=== PATIENT | female | born 1995 | race Caucasian/White ===

== ENCOUNTER 2017-08-13 23:23 | Emergency (ER) | payer OTHER ==
[2017-08-13 23:29] VITALS: TEMP 98.8
--- NOTE | 2017-08-13 23:39 | EDPHY ---
H & P Stated Complaint: drug interaction between celexa and abx- racing heart Time Seen by Provider: 08/13/17 23:38 HPI/ROS: HPI: This is a 21-year-old female who presents Chief Complaint: drug interaction between celexa and abx- racing heart Location: heart Quality: Racing Duration: Prior to arrival Signs and Symptoms: No fever, + cough, no chills, + fatigue, + decreased appetite, no chest pain, no shortness of breath, no headache, no neck stiffness Timing: Sudden Severity: Moderate to severe Context: Patient reports that she was diagnosed with mono in May and then developed a cough and body aches several days ago. She was diagnosed with bronchitis and started on a Z-Devon, albuterol nebulizer 3 times a day and prednisone. Today while she was getting ready for bed, she started to feel her heart race and increased breathing pattern that she describes as shallow. She is concerned that she is having interaction between her Celexa and Zithromax per the pharmacist warning. History of asthma. Modifying Factors: None Comment: ROS: see HPI Constitutional: No fever, no chills, no weight loss Eyes: No blurred vision Respiratory: No shortness of breath, no cough Cardiovascular: No chest pain Gastrointestinal: No nausea, no vomiting, no diarrhea Genitourinary: No dysuria Extremities: No myalgias Neurologic: No weakness, no numbness Skin: No rashes Hematologic: No bruising, no bleeding MEDICAL/SURGICAL/SOCIAL HISTORY: Medical history: Asthma Surgical history: Nose surgery Social history: College student. CONSTITUTIONAL: Teenage white female who is moderately anxious awake and alert , no obvious distress HEENT: Atraumatic and normocephalic, PERRL, EOMI. Tympanic membranes clear. Oropharynx clear, no exudate and moist pink mucosa. Airway patent. No lymphadenopathy. No meningismus. Cardiovascular: Normal S1/S2, regular rate, regular rhythm, without murmur rub or gallop. PULMONARY/CHEST: Symmetrical and nontender. Clear to auscultation bilaterally. Good air movement. No accessory muscle usage. ABDOMEN: Soft, nondistended, nontender, no rebound, no guarding, no peritoneal signs, no masses or organomegaly. No CVAT. EXTREMITIES: 2/2 pulses, strength 5/5, no deformities, no clubbing, no cyanosis or edema. NEUROLOGICAL: no focal neuro deficits. GCS 15. SKIN: Warm and dry, no erythema. no rash. Good capillary refill. Source: Patient Exam Limitations: No limitations - Personal History LMP (Females 10-55): 1-7 Days Ago Current Tetanus/Diphtheria Vaccine: Yes Current Tetanus Diphtheria and Acellular Pertussis (TDAP): Yes - Medical/Surgical History Hx Asthma: Yes Hx Chronic Respiratory Disease: No Hx Diabetes: No Hx Cardiac Disease: No Hx Renal Disease: No Hx Cirrhosis: No Hx Alcoholism: No Hx HIV/AIDS: No Hx Splenectomy or Spleen Trauma: No Other PMH: surgery on nose - Social History Smoking Status: Never smoked Constitutional: Initial Vital Signs Temperature (C) 37.1 C 08/13/17 23:26 Heart Rate 67 08/13/17 23:26 Respiratory Rate 16 08/13/17 23:26 Blood Pressure 122/62 H 08/13/17 23:26 O2 Sat (%) 95 08/13/17 23:26 O2 Delivery Mode Room Air Allergies/Adverse Reactions: No Known Allergies Allergy (Unverified 08/13/17 23:29) Home Medications: Medication Instructions Recorded Adderall 10 mg Tablet 08/13/17 Albuterol 08/13/17 Celexa 08/13/17 Claritin 08/13/17 Tanika 3 mg-0.02 mg Tablet 08/13/17 Singulair 08/13/17 Amoxicillin/Clavulanate Pot 875 mg PO BID #10 tab 08/14/17 [Augmentin 875 MG TAB (*)] Benzonatate [Tessalon Pearles (RX)] 100 mg PO Q8 PRN #12 cap 08/14/17 Medical Decision Making - Diagnostics Imaging Results: Imaging Impressions Chest X-Ray 08/13/17 23:53 Impression: Normal chest x-ray. Procedures: 12 lead EKG: Indication: Heart racing Rhythm: Normal sinus rhythm, rate of 61 beats per minute Burr: Normal Intervals: Normal QRS: Normal ST segments: Normal T waves: Flipped in V1 V2 INTERPRETATION: Normal EKG The 12 lead EKG was interpreted by myself and with attending. ED Course/Re-evaluation: EKG, labs, chest x-ray and IV fluids ordered Vital signs stable upon arrival Chest x-ray my read shows no signs of pneumonia/pleural effusion/pneumothorax Labs grossly unremarkable including normal D-dimer Advised patient to discontinue Zithromax and I will start Augmentin, continue prednisone and only use albuterol nebulizers as needed Differential Diagnosis: Shortness of breath including but not limited to pulmonary infectious process, pulmonary embolus, medication side effect, dehydration, pneumonia. - Data Points Laboratory Results: Laboratory Results 08/13/17 23:50 08/13/17 23:50 08/13/17 08/13/17 08/13/17 23:50 23:50 23:50 WBC RBC Hgb Hct MCV MCH MCHC RDW Plt Count MPV Neut % (Auto) Lymph % (Auto) [place] % (Auto) Eos % (Auto) Baso % (Auto) Nucleat RBC Rel Count Absolute Neuts (auto) Absolute Lymphs (auto) Absolute Monos (auto) Absolute Eos (auto) Absolute Basos (auto) Absolute Nucleated RBC Immature Gran % Immature Gran # D-Dimer < 0.27 ug/mLFEU ug/mLFEU (0.00-0.50) Sodium 142 mEq/L mEq/L (134-144) Potassium 3.9 mEq/L mEq/L (3.5-5.2) Chloride 106 mEq/L mEq/L (97-110) Carbon Dioxide 22 mEq/l mEq/l (22-31) Anion Gap 14 mEq/L mEq/L (8-16) BUN 12 mg/dL mg/dL (7-23) Creatinine 0.6 mg/dL mg/dL (0.6-1.0) Estimated GFR > 60 Glucose 115 mg/dL H mg/dL (70-100) Calcium 9.2 mg/dL mg/dL (8.5-10.4) Beta HCG, Qual NEGATIVE 08/13/17 23:50 WBC 7.74 10^3/uL 10^3/uL (3.80-9.50) RBC 3.97 10^6/uL L 10^6/uL (4.18-5.33) Hgb 13.3 g/dL g/dL (12.6-16.3) Hct 37.3 % L % (38.0-47.0) MCV 94.0 fL fL (81.5-99.8) MCH 33.5 pg pg (27.9-34.1) MCHC 35.7 g/dL g/dL (32.4-36.7) RDW 12.7 % % (11.5-15.2) Plt Count 176 10^3/uL 10^3/uL (150-400) MPV 12.3 fL H fL (8.7-11.7) Neut % (Auto) 68.2 % % (39.3-74.2) Lymph % (Auto) 23.0 % % (15.0-45.0) [place] % (Auto) 7.9 % % (4.5-13.0) Eos % (Auto) 0.0 % L % (0.6-7.6) Baso % (Auto) 0.5 % % (0.3-1.7) Nucleat RBC Rel Count 0.0 % % (0.0-0.2) Absolute Neuts (auto) 5.28 10^3/uL 10^3/uL (1.70-6.50) Absolute Lymphs (auto) 1.78 10^3/uL 10^3/uL (1.00-3.00) Absolute Monos (auto) 0.61 10^3/uL 10^3/uL (0.30-0.80) Absolute Eos (auto) 0.00 10^3/uL L 10^3/uL (0.03-0.40) Absolute Basos (auto) 0.04 10^3/uL 10^3/uL (0.02-0.10) Absolute Nucleated RBC 0.00 10^3/uL 10^3/uL (0-0.01) Immature Gran % 0.4 % % (0.0-1.1) Immature Gran # 0.03 10^3/uL 10^3/uL (0.00-0.10) D-Dimer Sodium Potassium Chloride Carbon Dioxide Anion Gap BUN Creatinine Estimated GFR Glucose Calcium Beta HCG, Qual Medications Given: Discontinued Medications Sodium Chloride (Ns) 1,000 mls @ 0 mls/hr IV EDNOW ONE; Wide Open PRN Reason: Protocol Stop: 08/13/17 23:54 Last Admin: 08/14/17 00:07 Dose: 1,000 mls Departure - Departure Disposition: Home, Routine, Self-Care Clinical Impression: Bronchitis Medication side effect Qualifiers: Encounter type: initial encounter Qualified Code(s): T88.7XXA - Unspecified adverse effect of drug or medicament, initial encounter Condition: Good Instructions: Acute Bronchitis (ED) Additional Instructions: Stop taking albuterol nebulizers 3 times a day scheduled. Only use it as needed for shortness of breath or wheezing. Stop taking Zithromax while you are taking Celexa. Fill your prescription of Augmentin tomorrow. Chest x-ray today does not show any signs of pneumonia. Drink plenty of fluids and rest as much as possible. Referrals: [facility] [Other] - As per Instructions Prescriptions: Amoxicillin/Clavulanate Pot [Augmentin 875 MG TAB (*)] 875 mg PO BID #10 tab Benzonatate [Tessalon Pearles (RX)] 100 mg PO Q8 PRN #12 cap PRN Reason: Cough, Severe
--- NOTE | 2017-08-13 23:42 | CPEKG ---
Heart Rate: 61 RR Interval: 984 P-R Interval: 140 QRSD Interval: 64 QT Interval: 404 QTC Interval: 407 P [place]: 14 QRS [place]: 79 T Wave [place]: 34 EKG Severity - NORMAL ECG - EKG Impression: SINUS RHYTHM Electronically Signed By: Ney Napier 16-Aug-2017 17:09:52
--- NOTE | 2017-08-13 23:42 | CPEKG ---
Heart Rate: 61 RR Interval: 984 P-R Interval: 140 QRSD Interval: 64 QT Interval: 404 QTC Interval: 407 P [place]: 14 QRS [place]: 79 T Wave [place]: 34 EKG Severity - NORMAL ECG - EKG Impression: SINUS RHYTHM Electronically Signed By: Ney Napier 16-Aug-2017 17:09:52
[2017-08-13] MEDS ORDERED: NS 1,000 ML IV ONE (23:53)
[2017-08-14 00:56] LABS: PLATELET COUNT 176 10^3/uL (150-400)
[2017-08-14] MEDS ORDERED: BENZONATATE 100 MG CAP PO ONE (01:02)
[2017-08-14 01:09] VITALS: PULSE 86; O2SAT 97
[2017-08-14 01:10] VITALS: BP 116/79; RESP 16
== END 2017-08-14 01:23 | disposition home or self-care (01) ==
DX: J20.9 Acute bronchitis, unspecified (principal); T50.905A Adverse effect of unspecified drugs, medicaments and biological substances, initial encounter; J45.909 Unspecified asthma, uncomplicated; E86.9 Volume depletion, unspecified

== ENCOUNTER 2018-10-28 22:28 | Emergency (ER) | payer OTHER ==
[2018-10-28] MEDS ORDERED: IBUPROFEN 600 MG TAB PO ONE (22:43)
--- NOTE | 2018-10-28 22:43 | EDPHY ---
H & P Time Seen by Provider: 10/28/18 22:35 HPI/ROS: CHIEF COMPLAINT: Right ankle pain HISTORY OF PRESENT ILLNESS: Patient is a 22-year-old female here with a chief complaint of lateral right ankle pain after she rolled her right ankle stepping out of a car. She denies any other associated injury including no knee or hip pain. She denies . She admits to drinking alcohol this evening. She has tried no medication to alleviate her pain. She can bear weight but this is painful. She denies any numbness or loss of range of motion. She has never injured this ankle before. ROS As detailed in HPI Smoking Status: Never smoked Physical Exam: General: Alert and oriented. Nontoxic appearing. No acute distress HEENT: Pupils PERRLA. No oral lesions. Cardiopulmonary: Regular rate and rhythm. No lower extremity edema Skin: [place] warm and dry. No lesions. Muscle skeletal: Moving all 4 extremities. Equal strength in upper extremities and lower extremities. Tenderness and swelling to the right lateral malleolus and 5th metatarsal. No deformity noted. Full range of motion of the ankle. Neurovascular intact distal to the right ankle. Constitutional: Initial Vital Signs Temperature (C) 36.4 C 10/28/18 22:30 Heart Rate 77 10/28/18 22:30 Respiratory Rate 16 10/28/18 22:30 Blood Pressure 113/78 10/28/18 22:30 O2 Sat (%) 95 10/28/18 22:30 O2 Delivery Mode Room Air Allergies/Adverse Reactions: No Known Allergies Allergy (Verified 10/28/18 22:33) Home Medications: Medication Instructions Recorded Celexa 08/13/17 Claritin 08/13/17 Tanika 3 mg-0.02 mg Tablet 08/13/17 Singulair 08/13/17 Probiotic 10/28/18 VYVANSE 10/28/18 Medical Decision Making - Diagnostics Imaging Results: Imaging Impressions Ankle X-Ray 10/28/18 22:42 Impression: Nothing acute identified. ED Course/Re-evaluation: 22-year-old female here with lateral ankle pain after rolling her ankle getting out of car. X-ray reveals no fracture or dislocation. She is neurovascular intact distal to the ankle. She is able to ambulate with some pain. Pain improved with the PO Motrin. She was given a Jimbo bandages and able to ambulate from the ER. We did discuss appropriate follow-up with her primary care physician if she is not improving. - Data Points Medications Given: Discontinued Medications Ibuprofen (Motrin) 600 mg PO EDNOW ONE Stop: 10/28/18 22:44 Last Admin: 10/28/18 22:46 Dose: 600 mg Departure - Departure Disposition: Home, Routine, Self-Care Clinical Impression: Ankle sprain Condition: Good Instructions: Ankle Sprain (ED) Additional Instructions: Follow-up with her primary care physician in 7-10 days if symptoms have not significantly improved. Referrals: NONE *PRIMARY CARE P,. [Primary Care Provider] - As per Instructions [facility],. [Clinic] - As per Instructions
[2018-10-28 23:22] VITALS: BP 110/80
== END 2018-10-28 23:21 | disposition home or self-care (01) ==
DX: S93.401A Sprain of unspecified ligament of right ankle, initial encounter (principal); X50.1XXA Overexertion from prolonged static or awkward postures, initial encounter; Y92.810 Car as the place of occurrence of the external cause; Y99.9 Unspecified external cause status; Y93.9 Activity, unspecified